=== PATIENT | female | born 1950 | race Two or more races ===

== ENCOUNTER 2016-09-17 12:59 | Emergency (ER) | payer OTHER ==
[2016-09-17 13:54] VITALS: RESP 16; TEMP 98.1; O2SAT 96
--- NOTE | 2016-09-17 14:06 | EDPHY ---
H & P Time Seen by Provider: 09/17/16 13:41 HPI/ROS: This patient is here with her daughter who translates although this patient also does speak some [place]ag[place] she just arrived from [place] to visit her daughter for 2 weeks. She presents with cough and hoarse voice. She has 4 days of coughing that is primarily dry hacky cough occasionally productive of sputum associated with hoarse voice for 2 days. She has sore throat associated with her hoarse voice. She notes no clear exacerbating factors for her symptoms. She has had some low-grade subjective fevers today and documented fever 102 at home yesterday. She has also had some loose stools over the same period of time. She reports a total 4 bowel movements today over the past 2 days per reports that is resolving and had a formed stool prior to arrival. ROS: No significant fatigue or other constitutional symptoms besides what is mentioned in HPI HEENT: She reports no difficulty swallowing. No sinus pain. No other HEENT complaints Pulmonary: No pleuritic pain. She reports no respiratory distress. No hemoptysis. No night sweats Cardiovascular: She reports no heart palpitations, chest pain or lower extremity swelling. No calf pain. GI: No abdominal pain. : No symptoms Integumentary: No skin rash 10 point ROS is otherwise negative. Smoking Status: Never smoked Physical Exam: General Appearance: Alert, no distress. Eyes: Pupils equal and round no pallor or injection. ENT, Mouth: Mucous membranes moist. Patient has a hoarse voice. No drooling or stridor. Respiratory: Minimal wheeze when she coughs. No rales or rhonchi. Cardiovascular: Regular rate and rhythm. No murmur gallop rub. No JVD. No lower extremity swelling or tenderness Gastrointestinal: Abdomen is soft and nontender, no masses, bowel sounds normal. Neurological: GCS of 15. Skin: Warm and dry, no rashes. Musculoskeletal: Neck is supple nontender. Extremities are symmetrical, full range of motion. Psychiatric: Mood and affect normal DIFFERENTIAL DIAGNOSIS: After history and physical exam differential diagnosis was considered for laryngitis with bronchitis, URI with cough, doubt pneumonia Constitutional: Initial Vital Signs Temperature (C) 36.7 C 09/17/16 13:01 Heart Rate 71 09/17/16 13:01 Respiratory Rate 16 09/17/16 13:01 Blood Pressure 120/68 09/17/16 13:01 O2 Sat (%) 96 09/17/16 13:01 O2 Delivery Mode Room Air Allergies/Adverse Reactions: No Known Allergies Allergy (Verified 09/17/16 13:07) Home Medications: Medication Instructions Recorded Albuterol Hfa Anes Only [Proair 2 puffs IH Q4 PRN #1 mdi 09/17/16 Hfa Icu (*)] Azithromycin [Zithromax] 250 mg PO DAILY #6 tab 09/17/16 Crestor 09/17/16 Diamicron 09/17/16 Diovan 09/17/16 Indapamide 09/17/16 Lantus 100 UNITS/ML (*) 09/17/16 Metformin HCl 09/17/16 Synthroid 09/17/16 MDM/Departure - MDM ED Course/Re-evaluation: Discussion: Patient presents with normal vital signs hoarse voice cough with no clinical findings to suggest lower respiratory infection, PE, DVT other complicating factors. While she has loose stools earlier they have resolved she is tolerating good p. o. intake and appears clinically well. Given her history of diabetes will cover her with macrolide antibiotic. Also provided albuterol inhaler. Counseled patient and her daughter regarding this. She understands the need to return for any significant worsening symptoms despite the treatment plan and provided a primary care physician for follow up with while here in the [place] for recheck. - Depart Disposition: Home, Routine, Self-Care Clinical Impression: Acute laryngitis Acute bronchitis Qualifiers: Bronchitis organism: unspecified organism Qualified Code(s): J20.9 - Acute bronchitis, unspecified Condition: Good Instructions: Laryngitis (ED), Acute Bronchitis (ED) Additional Instructions: Diagnosis: 1. Acute pharyngitis 2. Acute bronchitis Plan: Humidifier Albuterol inhaler spacer for cough, wheeze or shortness of breath Zithromax antibiotic Call Dr. Adrienne Salazar MD to arrange follow-up appointment for recheck in 5-7 days for any ongoing symptoms Return for any significant worsening despite the treatment plan Prescriptions: Albuterol Hfa Anes Only [Proair Hfa Icu (*)] 2 puffs IH Q4 PRN #1 mdi PRN Reason: Wheezing Azithromycin [Zithromax] 250 mg PO DAILY #6 tab Referrals: NONE *PRIMARY CARE P,. [Primary Care Provider] - As per Instructions
[2016-09-17 14:17] VITALS: BP 125/82; PULSE 74
== END 2016-09-17 14:15 | disposition home or self-care (01) ==
LOC: CED 12:59
DX: J20.9 Acute bronchitis, unspecified (principal); J04.0 Acute laryngitis; E11.9 Type 2 diabetes mellitus without complications; Z79.4 Long term (current) use of insulin; Z79.84 Long term (current) use of oral hypoglycemic drugs
CPT/HCPCS: 87880-PO